=== PATIENT | female | born 1970 | race Caucasian/White ===

== ENCOUNTER → 2018-01-12 | Outpatient (CLI) | payer OTHER ==
[~2018-01-12] MED LIST: IOPAMIDOL (ISOVUE-300) 100 ML BTL ONE
== END ==
LOC: FIMAGING 07:34
PROVIDERS: ATTEND Surgery
DX: R59.0 Localized enlarged lymph nodes (principal); C18.2 Malignant neoplasm of ascending colon
CPT/HCPCS: Q9967

== ENCOUNTER 2018-01-19 09:23 | Inpatient (IN) | payer OTHER ==
[2018-01-19] MEDS ORDERED: LR 1,000 ML IV ONE (09:33)
--- NOTE | 2018-01-19 09:43 | PDANEPAE ---
ANE Past Medical History - Cardiovascular History Hx Hypertension: Yes Hx Arrhythmias: No Hx Chest Pain: No Hx Coronary Artery / Peripheral Vascular Disease: No Hx CHF / Valvular Disease: No Hx Palpitations: No Cardiovascular History Comment: no medications - Pulmonary History Hx COPD: No Hx Asthma/Reactive Airway Disease: No Hx Recent Upper Respiratory Infection: No Hx Oxygen in Use at Home: No Hx Sleep Apnea: Yes Sleep Apnea Screening Result - Last Documented: Positive Pulmonary History Comment: SANTO does not use C-PAP - Neurologic History Hx Cerebrovascular Accident: No Hx Seizures: No Hx Dementia: No - Endocrine History Hx Diabetes: Yes Endocrine History Comment: type 11 NIDDM - Renal History Hx Renal Disorders: No - Liver History Hx Hepatic Disorders: No - Neurological & Psychiatric Hx Hx Neurological and Psychiatric Disorders: Yes Neurological / Psychiatric History Comment: positional numbness to hands when sleeping - Cancer History Hx Cancer: Yes Cancer History Comment: malignant neoplasm of ascending colon - Congenital Disorder History Hx Congenital Disorders: No - GI History Hx Gastrointestinal Disorders: Yes Gastrointestinal History Comment: heartburn - Other Health History Other Health History: none - Chronic Pain History Chronic Pain: No - Surgical History Prior Surgeries: none ANE Review of Systems Review of Systems: - Exercise capacity METS (RN): 4 METS ANE Patient History - Allergies Allergies/Adverse Reactions: No Known Allergies Allergy (Verified 01/18/18 17:04) - Home Medications Home Medications: Amoxil 01/18/18 [Last Taken Unknown] Ferrous Sulfate 01/18/18 [Last Taken Unknown] Metformin HCl 01/18/18 [Last Taken Unknown] - Smoking Hx Smoking Status: Never smoked - Family Anes Hx Family Hx Anesthesia Complications: none ANE Labs/Vital Signs - Vital Signs Height: 157.48 cm Weight: 88.904 kg ANE Physical Exam - Airway Mallampati Score: Class 2 - ASA Status ASA Status: II ANE Anesthesia Plan Anesthesia Plan: general endotracheal anesthesia
[2018-01-19] MEDS ORDERED: ceFAZolin 2 GM/SWFI 2 GM/20 ML SYR IVP ONE (09:47)
[2018-01-19] MEDS ORDERED: BACITRACIN 50,000 UNITS/10 ML SYR IRR ONE (10:00)
[2018-01-19] MEDS ORDERED: BUPIVACAINE 0.5% 30 ML SDV ONE (10:00)
[2018-01-19] MEDS ORDERED: POLYMYXIN B SULFATE 500,000 UNIT/10 ML SYR IRR ONE (10:00)
[2018-01-19 10:08] LABS: PLATELET COUNT 585 10^3/uL (150-400)
[2018-01-19] MEDS ORDERED: PROPOFOL 200 MG/20 ML VIAL ONE (10:12)
[2018-01-19] MEDS ORDERED: MIDAZOLAM 2 MG/2 ML VIAL ONE (10:12)
[2018-01-19] MEDS ORDERED: fentaNYL 100 MCG/2 ML INJ ONE ×4 (10:12→13:47)
[2018-01-19] MEDS ORDERED: METOCLOPRAMIDE 10 MG/2 ML VIAL ONE ×2 (10:15)
[2018-01-19] MEDS ORDERED: ONDANSETRON 4 MG/2 ML VIAL ONE (10:15)
--- NOTE | 2018-01-19 10:33 | PDHPUP ---
History & Physical Update H&P update statement: This history and physical update is based on an assessment of the patient which was completed after admission or registration (within 24 hours), but prior to the surgery/procedure. H&P update: no change in patient's condition since H&P completed (H/H 05/06. CT No hep mets, more prominent LN)
[2018-01-19] MEDS ORDERED: ROCURONIUM 50 MG/5 ML VIAL ONE ×2 (11:14)
[2018-01-19] MEDS ORDERED: SUGAMMADEX SODIUM 200 MG/2 ML VIAL IVP ONE (12:59)
[2018-01-19] MEDS ORDERED: LR 500 ML IV PRN (13:42)
[2018-01-19] MEDS ORDERED: ONDANSETRON 4 MG/2 ML VIAL IVP PRN ×2 (13:42→13:48)
[2018-01-19] MEDS ORDERED: NALOXONE HCL 0.4 MG/ML INJ IVP PRN (13:42)
--- NOTE | 2018-01-19 13:43 | POSTANESTH ---
Post Anesthetic Evaluation Cardiovascular Status: Normal, Stable Respiratory Status: Normal, Stable Level of Consciousness/Mental Status: Can Participate in Eval Pain Control: Adequate, Prn Tx Ordered Nausea/Vomiting Control: Adequate, Prn Tx Ordered Complications Possibly Related to Anesthesia: None Noted
[2018-01-19] MEDS ORDERED: TEMAZEPAM 15 MG CAP PO PRN (13:48)
--- NOTE | 2018-01-19 13:48 | POSTOPPROG ---
Post Op Note Date of Operation: 01/19/18 Surgeon: Vinay Cohen Tile Presser: none Anesthesiologist: Sonido Anesthesia: GET(General Endotracheal) Pre-op Diagnosis: Right colon cancer Post-op Diagnosis: same Procedure: Laparoscopic right colectomy Findings: large tumor. no peritoneal or hepatic implants Inf/Abcess present in the surg proc area at time of surgery?: No Depth: Organ Space EBL: Minimal Complications: none Specimen(s): right colon
[2018-01-19] MEDS: fentaNYL 100 MCG/2 ML INJ IVP PRN ×2 (13:50→14:03)
--- NOTE | 2018-01-19 14:15 | PDMN ---
Medical Necessity Medical necessity: S235 bowel surgery colectomy, with or without ostomy by Lap 3 days INPT only: Floyd. R colectomy for Colon Ca.
--- NOTE | 2018-01-19 15:33 | GOP ---
[f rep st] OPERATIVE REPORT DATE OF OPERATION: SURGEON: Vinay Cohen MD ANESTHESIA: General endotracheal anesthesia was used. ANESTHESIOLOGIST: Dr. Emiliano Head. PREOPERATIVE DIAGNOSIS: Right colon cancer. POSTOPERATIVE DIAGNOSIS: Right colon cancer. PROCEDURE PERFORMED: Laparoscopic right colectomy. FINDINGS: SPECIMENS: Right colon to permanent pathology. ESTIMATED BLOOD LOSS: Approximately 50 mL. INDICATIONS: This is a 47-year-old patient who presents with 1-1/2 years of anemia, biopsy-proven ad enocarcinoma of the cecum in June. Repeat CT scan due to loss of insurance recently did not jon w any metastatic disease to the colon, but more prominent lymph nodes. DESCRIPTION OF PROCEDURE: Patient was brought in the operating room. After induction of endotrachea l anesthesia in supine position, her abdomen was prepped with chlorhexidine and draped sterilely. Pr eoperative Ancef and Flagyl had been administered. Time-out procedure performed according to institu tional standards. Local anesthetic was infused in the skin and subcutaneous tissues, and an open 5 m m trocar placement was performed in the epigastric region. The abdomen was insufflated to 15 torr wi th carbon dioxide. Working trocars were placed in the lower midline and left lower quadrant under di rect visualization. Another port was placed in the right upper quadrant to facilitate dissection of the hepatic flexure. The colon was mobilized medially, taking the ileocolic vessel and the right branch of the middle coli c adjacent to the SMA. The mesentery was then elevated and the dissection was carried above the duod enum to the space between the pancreas and duodenum and hepatic flexure. Mobilization of the lateral attachment was then performed, taking down the mesentery in a standard fashion, entering the lesser sac, and then mobilizing the appendix and the cecum. After ensuring medialization of the anatomy, a small incision was made. A Vi Drape was placed. The colon was exteriorized. Resection was performe d in a standard fashion using a BREANNA-75 stapler. [id number] functional end-to-end anastomosis was p erformed using a BREANNA-75 stapler, and then the enterotomy created was closed using 3-0 PDS and imbrica eh with 3-0 Vicryl. The colon and ileocolostomy anastomosis were then reintroduced in the abdomen. Hemostasis was assured. The fascia was closed in a clean closure fashion, and the abdomen was reins ufflated. Inspection of the abdomen did not reveal any compromise. The colon appeared to be in good lie and viable. Hemostasis was assured. Working trocars were then removed as the abdomen was defla eh. The skin was then reapproximated using 4-0 Monocryl. Dermabond was applied to all incisions. The patient was then awakened, extubated, and taken to recovery room in stable condition. No immedia te complications. FLUID GIVEN: 1.5 L crystalloid. Copy requested to: Fredo Potts /[id number]/MODL
[2018-01-19] MEDS: LR 1,000 ML IV SCH (15:52)
[2018-01-19] MEDS: KETOROLAC 15 MG/1 ML SDV IVP SCH ×2 (17:49→23:28)
[2018-01-20] MEDS: KETOROLAC 15 MG/1 ML SDV IVP SCH ×4 (05:29→23:55)
[2018-01-20] MEDS: LR 1,000 ML IV SCH (05:32)
[2018-01-20] MEDS: ENOXAPARIN 40 MG/0.4 ML SYR SC SCH (09:55)
--- NOTE | 2018-01-20 13:02 | SOAPPROG ---
SOAP Progress Note Assessment/Plan: Assessment/Plan: POD# 1 s/p right colectomy OOB Tolerating clears + flatus H/H 6.11/06 down from 7.11/10 preop Has been anemic x 1 year RRR CTA Abd soft appropriately tender Mild distension Doing well HD stable no transfusion Iron supplimentation as outpt Restart metformin Adv to reg diet Antipate d/c in am 01/20/18 13:00 Objective: Vital Signs Temp Pulse Resp BP Pulse Ox 36.8 C 91 16 127/70 H 95 01/20/18 11:22 01/20/18 11:22 01/20/18 11:22 01/20/18 11:22 01/20/18 11:22 Laboratory Results 01/20/18 07:45 01/20/18 07:45 01/19/18 01/20/18 01/21/18 05:59 05:59 05:59 Intake Total 2916 Output Total 50 400 Balance 2866 -400 ICD10 Worksheet Patient Problems: Problems Problem Status Onset Colon adenocarcinoma Acute - ICD10 Problem Qualifiers (1) Colon adenocarcinoma
[2018-01-20] MEDS ORDERED: HYDROCODONE/APAP 5/325 TAB PO PRN (13:03)
[2018-01-20] MEDS: HYDROCODONE/APAP 5/325 TAB PO PRN (16:28)
--- NOTE | 2018-01-20 17:33 | ASMTCMCOM ---
CM Note CM Note Notes: Spoke w/RN, anticipate pt will dc home w/support of when medically stable. CM available for any changes. DC Plan: Independent Date Signed: 01/20/2018 05:33 PM Electronically Signed By:Sheila Storey RN
[2018-01-20] MEDS: metFORMIN HCL 500 MG TAB PO SCH (18:14)
[2018-01-21] MEDS: HYDROCODONE/APAP 5/325 TAB PO PRN ×2 (04:38→08:40)
[2018-01-21] MEDS: KETOROLAC 15 MG/1 ML SDV IVP SCH ×2 (05:53→12:27)
[2018-01-21] MEDS: metFORMIN HCL 500 MG TAB PO SCH (08:26)
[2018-01-21] MEDS: ENOXAPARIN 40 MG/0.4 ML SYR SC SCH (08:27)
[2018-01-21] MEDS ORDERED: SODIUM FERRIC GLUCONAT/SUCROSE 125 MG in NS 100 ML IV ONE (09:56)
--- NOTE | 2018-01-21 09:58 | SOAPPROG ---
SOAP Progress Note Assessment/Plan: Assessment:no overnight complaints. min pain. no nausea. avss. comfortable. abd soft, min dist. incis clean. doing great. home today. will repeat Hb to ensure stability. one dose IV iron. outpt iron supplementation. f/u dr. chapman 1-2 weeks. path pending - outpt onc follow-up to be arranged. all instructions explained in kinyarwanda Plan: 01/21/18 09:57 Objective: Vital Signs Temp Pulse Resp BP Pulse Ox 37.0 C 90 16 119/72 94 01/21/18 07:11 01/21/18 07:11 01/21/18 07:11 01/21/18 07:11 01/21/18 07:11 Laboratory Results 01/20/18 07:45 01/20/18 07:45 01/20/18 01/21/18 01/22/18 05:59 05:59 05:59 Intake Total 0304 850 Output Total 50 2700 Balance 2866 -4920 ICD10 Worksheet Patient Problems: Problems Problem Status Onset Colon adenocarcinoma Acute
--- NOTE | 2018-01-21 10:26 | GDS ---
[f rep st] DISCHARGE SUMMARY REASON FOR ADMISSION: Colon cancer. HOSPITAL COURSE: 47-year-old female admitted with a known history of colon cancer. Treatment was delayed because of insurance constraints. She was admitted for a laparoscopic right hemicolectomy, which occurred uneventfully. She was discharged to home on postop day #2, in excellent condition. She was tolerating a regular diet. She has had adequate pain control with oral analgesics. She was to resume all pre-hospital medications. She was given prescriptions for [place], as well as ferrous equals for postoperative anemia management. A hemoglobin was pending upon discharge with plans for a solitary dose of IV iron to be administered before leaving. Full instructions were explained to the patient is Finnish prior to discharge. Arrangements will be made for outpatient oncology followup after postop visit completed. /[id number]/MODL MTDD
--- NOTE | 2018-01-21 10:39 | ASMTCMCOM ---
CM Note CM Note Notes: Pt. to d/c independently today per RN. Date Signed: 01/21/2018 10:38 AM Electronically Signed By:Emelina Kruse LCSW
[2018-01-21 10:45] VITALS: BP 119/78
[2018-01-21] MEDS ORDERED: FLU VACC QS 2017-18 (3YR+)/PF 0.5 ML SYR (FLUARIX QUAD) IM ONE (12:44)
== END 2018-01-21 14:15 | disposition home or self-care (01) | DRG 331 ==
LOC: F3N 09:23 → F3E 15:22
PROVIDERS: ADMIT Surgery; ATTEND Surgery
PROC: 0DBK4ZZ Excision of Ascending Colon, Percutaneous Endoscopic Approach (ICD-10-PCS; principal; 2018-01-19 10:30)
DX: C18.2 Malignant neoplasm of ascending colon (principal); D64.9 Anemia, unspecified; E11.9 Type 2 diabetes mellitus without complications; E66.9 Obesity, unspecified; Z68.36 Body mass index [BMI] 36.0-36.9, adult
CPT/HCPCS: G0008; J0690; J1650; J1885; J2250; J2270; J2405; J2704; J2765; J2916; J3010